=== PATIENT | female | born 1960 | race Caucasian/White ===

== ENCOUNTER 2023-03-04 08:23 | Day surgery (SDC) | payer SELFPAY ==
[~2023-03-04 08:23] MED LIST: Albuterol 0.083% 2.5 MG/3 ML Neb Soln NEB PRN; HYDROmorphone 1 MG/ML Syringe IVPUSH PRN; Metoclopramide 10 MG/2 ML SDV IVPUSH PRN; Morphine 2 MG/ML SYRINGE IVPUSH PRN; Naloxone 0.4 MG/ML SDV IVPUSH PRN; Ondansetron 4 MG/2 ML SDV IVPUSH PRN; Sodium Chloride 0.9% 10 ML Syringe FLUSH PRN; Sodium Chloride 0.9% 2.5 ML Syringe FLUSH PRN; Sodium Chloride 0.9% 20 ML SDV IV PRN; ceFAZolin 2 GM in Sodium Chloride 0.9% 50 ML IV ONE; droPERidol 5 MG/2 ML SDV IVPUSH PRN; fentaNYL 50 MCG/ML SDV IVPUSH PRN
[2023-03-04] MEDS ORDERED: Scopolamine 1.5 MG Transdermal Patch TOP ONE (08:30)
[2023-03-04] MEDS ORDERED: Lactated Ringers 1,000 ML IV SCH (09:00)
[2023-03-04 09:06] LABS: HEMATOCRIT 43.3 % (37.0-47.0); HEMOGLOBIN 15.6 g/dL (12.0-16.0); MEAN CORPUSCULAR HEMOGLOBIN 31.7 pg (28.0-32.0); MEAN PLATELET VOLUME 8.6 fL (9.4-12.3); PLATELET COUNT,PLT 292 K/uL (150-400); RED BLOOD CELL COUNT 4.92 M/uL (4.10-5.30); WHITE BLOOD CELL COUNT,WBC 6.68 K/uL (3.9-11.3)
[2023-03-04] MEDS ORDERED: Dexamethasone 4 MG/ML 5 ML MDV ONE (10:30)
[2023-03-04] MEDS ORDERED: Propofol 200 MG/20 ML SDV ONE (10:30)
[2023-03-04] MEDS ORDERED: Ondansetron 4 MG/2 ML SDV ONE (10:30)
[2023-03-04] MEDS ORDERED: Lidocaine 2% 5 ML SDV ONE (10:30)
[2023-03-04] MEDS ORDERED: fentaNYL 100 MCG/2 ML SDV ONE (10:30)
[2023-03-04] MEDS ORDERED: ceFAZolin 2 GM Vial ONE (10:53)
[2023-03-04] MEDS ORDERED: Ketorolac 30 MG/ML SDV ONE (11:20)
== END 2023-03-04 14:05 | disposition home or self-care (01) ==
LOC: MW.SDS 08:23
PROVIDERS: ATTEND Obstetrics & Gynecology
DX: N81.10 Cystocele, unspecified (principal); F41.9 Anxiety disorder, unspecified; F17.210 Nicotine dependence, cigarettes, uncomplicated; Z90.710 Acquired absence of both cervix and uterus; Z79.899 Other long term (current) drug therapy; Z88.0 Allergy status to penicillin
CPT/HCPCS: 36415; 57240; 85027; J0131; J0690; J1100; J1885; J2405; J2704; J3010; J7120; J3490